=== PATIENT | female | born 1985 | race Two or more races ===

== ENCOUNTER 2018-12-30 09:08 | Inpatient (IN) | payer MEDICARE, MEDICAID ==
[2018-12-30] VITALS (20 sets, daily range): BP systolic 101–133; BP diastolic 50–89
[~2018-12-30] VITALS: Ht 170.2 cm; Wt 101.2 kg
[2018-12-30] MEDS ORDERED: PROPOFOL 100 ML ONE ×2 (09:19→12:40)
[2018-12-30] MEDS: PROPOFOL 100 ML IV PRN ×6 (09:22→22:14)
[2018-12-30 09:23] LABS: BASOPHILS # (AUTO) 0.1 /CMM (0.0-0.2); HEMOGLOBIN 11.4 g/dL (11.5-14.8)
[2018-12-30 09:27] LABS: BASOPHILS % (AUTO) 0.7 % (0.0-2.0); EOSINOPHILS % (AUTO) 6.4 % (0.0-6.0); HEMATOCRIT 35 % (33-45); LYMPHOCYTES # (AUTO) 3.8 /CMM (0.8-4.8); LYMPHOCYTES % (AUTO) 38.3 % (20.0-44.0); MEAN CORPUSCULAR HGB CONC 33 g/dl (31.0-36.0); MEAN CORPUSCULAR VOLUME 86 fL (82-100); MONOCYTES # (AUTO) 0.9 /CMM (0.1-1.30); MONOCYTES % (AUTO) 8.7 % (2.0-12.0); NEUTROPHILS # (AUTO) 4.5 /CMM (1.8-8.9); NEUTROPHILS % (AUTO) 45.9 % (43.0-81.0); PLATELET COUNT (AUTO) 486 /CMM (150-450); RED BLOOD CELL COUNT(AUTO) 4.08 MIL/uL (4.0-5.2); WHITE BLOOD COUNT (AUTO) 9.8 K/uL (4.3-11.0)
[2018-12-30] MEDS ORDERED: ONDANSETRON HCL/PF 4 MG/2 ML VIAL ONE (09:28)
--- NOTE | 2018-12-30 09:29 | NUR ---
RT NOTE RECEIVED PT INTUBATED BY PARAMEDICS. PT HAS 6.0 ETT @ 24CM AT LIP. ETT SECURE PROPERLY. CUFF INFLATED. VENTILATOR SETTINGS FOLLOW AC 12 500 50% +5. ALARMS SET PER PROTOCOL AND AUDIBLE. VENT PLUGGED IN TO RED OUTLET. AMBU BAG AT BED SIDE. Addendum: 12/30/18 at 0931 by BERNICE BROWN RT Amended: Links added.
[2018-12-30] MEDS ORDERED: CLINDAMYCIN 900 MG in IV D5W 100 ML IV ONE (09:30)
[2018-12-30] MEDS ORDERED: CLINDAMYCIN 900 MG/6 ML VIAL ONE (09:30)
[2018-12-30] MEDS ORDERED: IV NS 0.9% 1,000 ML BAG IV ONE (09:30)
[2018-12-30] MEDS ORDERED: ONDANSETRON HCL/PF 4 MG/2 ML VIAL IVP ONE (09:30)
[2018-12-30 09:39] LABS: ALANINE AMINOTRANSFERASE 17 U/L (12-78); ALBUMIN 3.7 g/dL (3.4-5.0); ALKALINE PHOSPHATASE 74 U/L (46-116); ASPARTATE AMINOTRANSFERASE 15 U/L (15-37); BILIRUBIN,TOTAL 0.1 mg/dL (0.2-1.0); CALCIUM, SERUM 8.2 mg/dL (8.5-10.1); CARBON DIOXIDE 26 mmol/L (21-32); CHLORIDE 106 mmol/L (98-107); CREATININE 0.6 mg/dL (0.6-1.3); GLUCOSE 115 mg/dL (74-106); POTASSIUM 3.7 mmol/L (3.5-5.1); SODIUM SERUM 139 mmol/L (136-145); TOTAL PROTEIN, SERUM 7.1 g/dL (6.4-8.2); UREA NITROGEN, BLOOD 11 mg/dL (7-18)
[2018-12-30] MEDS ORDERED: CLON0.5T PO (09:42)
[2018-12-30] MEDS ORDERED: DIGO250T PO (09:42)
[2018-12-30] MEDS ORDERED: CYCL10TA9 PO (09:42)
[2018-12-30] MEDS ORDERED: OXYC-133 PO (09:42)
[2018-12-30] MEDS ORDERED: ONDA4TAB11 PO (09:42)
[2018-12-30] MEDS ORDERED: ARIP10TA9 PO (09:42)
[2018-12-30] MEDS ORDERED: SEVELLA PO (09:42)
[2018-12-30] MEDS ORDERED: METO-357 PO (09:42)
[2018-12-30] MEDS ORDERED: OMEP20TA20 PO (09:42)
[2018-12-30] MEDS ORDERED: FLUV50TA10 PO (09:42)
[2018-12-30] MEDS ORDERED: LAMO200T2 PO (09:42)
[2018-12-30] MEDS ORDERED: MIDAZOLAM 50 MG/10 ML VIAL ONE (10:01)
[2018-12-30] MEDS ORDERED: KEY,NONCONTROL,TO KEEP IN PYXI 1 EA MC ONE (10:10)
--- NOTE | 2018-12-30 10:27 | NUR ---
Patient BIB EMS intubated from surgery secondary to aspiration from vomiting. patient placed in room no. 8. RT present at bedside along with Dr. Crabtree, RN's. Patient placed on monitor, and connected to vent. NGt in place. noted with restrict content. Patient noted agitation continue on propofol per MD order. Chau cath 18FR in placed, Observed sterile technique. Urine sample obtain and sent to the lab. Witnessed by student nurse. ABG's done and stable. no family present at the moment. will continue to monitor the patient.
[2018-12-30 10:28] LABS: ABG BASE EXCESS -2.8 mmol/L; ABG OXYGEN SATURATION 97.3 % (92.0-98.5); ABG PCO2 42.1 mmHg (35.0-45.0); ABG PO2 115.3 mmHg (75.0-100.0); AaDO2 193.8 mmHg; COHb 0.6 % (0.5-1.5); MetHb 0.6 % (0.0-1.5); O2Hb 96.1 % (94.0-97.0); PEEP,BG 5 cm H2O; SITE, ABG Left Radial; VENT MODE, BG AC 12 500 50% +5; VT, ABG 500 mL
[2018-12-30] MEDS ORDERED: MIDAZOLAM HCL 5 MG/5ML VIAL IV ONE (10:30)
[2018-12-30 10:39] LABS: APPEARANCE,URINE Clear (CLEAR); BILIRUBIN,URINE Negative (NEGATIVE); BLOOD, URINE Small Ery/uL (NEGATIVE); COLOR,URINE Yellow (YELLOW); KETONES,URINE Negative (NEGATIVE); LEUKOCYTE ESTERASE ,URINE Negative (NEGATIVE); NITRITE, URINE Negative (NEGATIVE); PH,URINE 5.5 (5.0-8.0); PROTEIN,URINE Negative (NEGATIVE); UGLUCOSE Negative (NEGATIVE); UROBILINOGEN,URINE 0.2 EU/dL (0.2)
[2018-12-30 10:40] LABS: BACTERIA,URINE Few /HPF (None Seen); SQUAMOUS EPITHELIAL CELL,UR Few /HPF (None Seen); WBC,URINE 0-2 /HPF (0-3)
[2018-12-30] MEDS: FENTANYL CITRATE IV 1,250 MCG in IV NS 0.9% 225 ML IV PRN ×3 (10:57→12:34)
--- NOTE | 2018-12-30 10:58 | NUR ---
Patient started on Fentanyl drip on Left hand connected to sapphire pump per protocol. vitals taken and recorded. Remain stable at the moment. will continue to monitor the patient.
--- NOTE | 2018-12-30 10:58 | NUR ---
patient intubated, response to touch stumili. Bilateral pupils 4mm, slow. MD aware.
[2018-12-30] MEDS ORDERED: ONDANSETRON HCL/PF 4 MG/2 ML VIAL IVP PRN (11:30)
[2018-12-30] MEDS ORDERED: VANCOMYCIN 1 GM in IV NS 0.9% 250 ML IV SCH (11:30)
[2018-12-30] MEDS ORDERED: PIPERACILLIN /TAZOBACTAM 4.5 G in IV D5W 50 ML IV SCH (12:00)
--- NOTE | 2018-12-30 12:36 | NUR ---
Patient eyes close arousable noted movevent to bilateral uppeer and lower extremities increase fentanyl 5 mcg /hr witness by Mikie CN
[2018-12-30] MEDS ORDERED: FEE PK DOSING 1 MIN EA MC ONE (12:45)
--- NOTE | 2018-12-30 13:10 | NUR ---
PAGED DR NEENA COSTELLO
--- NOTE | 2018-12-30 13:20 | NUR ---
Noted no further vomiting
--- NOTE | 2018-12-30 13:22 | NUR ---
Called report to Vasquez Andino to ICU room 252
--- NOTE | 2018-12-30 13:24 | NUR ---
Fentanyl 5mcg IVP drip continue infusing well to RAC
--- NOTE | 2018-12-30 13:26 | NUR ---
Patient on diprivan drip 10 mcg to RT hand infusing well .
--- NOTE | 2018-12-30 13:30 | NUR ---
received pt from ER, calmly sedated on Diprivan at fentanyl, ST, on the vent, intubated s/p aspiration in OR, lungs clear, no edema, NG to suction, f/c good output, v/s stable, no pain, seen by Dr. Cunha.
--- NOTE | 2018-12-30 13:47 | NUR ---
Tranfer care to Vasquez LAUREANO at ICU made aware. On fentanyl drip 5mcg. Propofol drip 10mcg. Infusing well. Made aware to f/u to hospitalist. Both IV site no edema no swelling no pain.
[2018-12-30] MEDS: VANCOMYCIN 1.25 GM in IV D5W 250 ML IV SCH ×2 (14:35→20:40)
[2018-12-30] MEDS: ENOXAPARIN SODIUM 40 MG/0.4 ML DISP.SYRIN SQ SCH (14:35)
--- NOTE | 2018-12-30 16:15 | NUR ---
pt is resting in the bed, calmly sedated on Diprivan at 50mcg, ST, NG to suction, f/c good urine output, v/s stable, no pain, pt cleaned, changed and repositioned/
[2018-12-30] MEDS: CYCLOBENZAPRINE 10 MG TABLET PO SCH (17:00)
[2018-12-30] MEDS: LamoTRIgine 100 MG TABLET PO SCH (17:31)
[2018-12-30] MEDS ORDERED: ARIPIPRAZOLE 5 MG TABLET PO ONE (18:00)
--- NOTE | 2018-12-30 19:40 | NUR ---
RN NOTES RECEIVED PATIENT SEDATED WTIH DIPRIVAN ORALLY INTUBATED WTIH ETT 6/ 24 CM AT LIP CONNECTED TO VENT SETTING AC 12 TV 500 FIO2 50% PEEP 5 PATIENT IS AOX 4 WOKE UP BUT CALM AND COOPERATIVE. NO ACUTE RESPIRATORY DISTRESS. SATURATION 98%. ST HR 115 ON TELE MONITOR. NOTED PATIENT HAD TEMPERATURE 100.2 DEGREE FHARENHEIGHT. COOLING MEASURES PROVIDED. WITH NGT ON LIS . IV SITE ON RAC WITH DIPRIVAN @ 60 MCG/KG/MIN AND RH G 22 INTACT AND PATENT. PATIENT HAD BAILEY CATH DRAINED VIA GRAVITY OFF FROM THE FLOOR . KEPT PT COMFORTABLE ON BED AND REPOSITION. CALL LIGHT KEPT WITHN EASY REACH. WILL CONTINUE TO MONITOR.
[2018-12-30] MEDS: CLINDAMYCIN 900 MG in IV D5W 50 ML IV SCH (20:40)
[2018-12-30] MEDS: ACETAMINOPHEN 325 MG TABLET PO PRN (20:50)
[2018-12-31] VITALS (45 sets, daily range): BP systolic 91–130; BP diastolic 48–88
[2018-12-31] MEDS: PROPOFOL 100 ML IV PRN ×3 (01:34→07:25)
[2018-12-31 04:42] LABS: BASOPHILS # (AUTO) 0.1 /CMM (0.0-0.2); BASOPHILS % (AUTO) 0.2 % (0.0-2.0); EOSINOPHILS % (AUTO) 0.5 % (0.0-6.0); HEMATOCRIT 31 % (33-45); HEMOGLOBIN 10.3 g/dL (11.5-14.8); LYMPHOCYTES # (AUTO) 1.4 /CMM (0.8-4.8); MEAN CORPUSCULAR HGB CONC 33 g/dl (31.0-36.0); MEAN CORPUSCULAR VOLUME 87 fL (82-100); MONOCYTES # (AUTO) 0.8 /CMM (0.1-1.30); MONOCYTES % (AUTO) 2.9 % (2.0-12.0); NEUTROPHILS # (AUTO) 24.9 /CMM (1.8-8.9); NEUTROPHILS % (AUTO) 91.4 % (43.0-81.0); PLATELET COUNT (AUTO) 398 /CMM (150-450); RED BLOOD CELL COUNT(AUTO) 3.59 MIL/uL (4.0-5.2); WHITE BLOOD COUNT (AUTO) 27.3 K/uL (4.3-11.0)
[2018-12-31] MEDS: CLINDAMYCIN 900 MG in IV D5W 50 ML IV SCH ×3 (04:56→20:48)
[2018-12-31] MEDS: VANCOMYCIN 1.25 GM in IV D5W 250 ML IV SCH ×3 (04:57→21:37)
[2018-12-31 05:09] LABS: CALCIUM, SERUM 8.1 mg/dL (8.5-10.1); CREATININE 0.5 mg/dL (0.6-1.3); MAGNESIUM 1.5 mg/dL (1.8-2.4); POTASSIUM 3.1 mmol/L (3.5-5.1)
[2018-12-31 05:24] LABS: THYROID STIMULATING HORMONE 0.474 uIU/mL (0.358-3.74)
--- NOTE | 2018-12-31 07:00 | NUR ---
RN NOTES PATIENT REMAINED INTUBATED TOLERATED WELL. AOX4 WITH SEDATION DIPRIVAN FOR COMFORT. PATIENT REMAINED CALM AND COOPERATIVE. DENIES PAIN. CONTINUE TO SUCTION NGT TO LIS WITH FOOD CONTENT FROM NGT AND FROM ETT SUCTION. ON DIPRIVAN TITRATED PROTOCOL. TMAX 100.2 COOLING MEASURES, TYLENOL PRN GIVEN ORDERED AND TOLERATED WELL. AFEBRILE AT THIS TIME. ST ON TELE MONITOR HR WENT UP TO 117 WHEN SPIKING FEVER. KEPT PT CLENA AND DRY.W ILL CONTINUE TO MONITOR.
--- NOTE | 2018-12-31 07:30 | NUR ---
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
[2018-12-31] MEDS ORDERED: DC PROPOFOL WHEN EXTUBATED XX PRN (08:00)
[2018-12-31] MEDS: PANTOPRAZOLE 40 MG VIAL IV SCH (08:11)
[2018-12-31] MEDS: CYCLOBENZAPRINE 10 MG TABLET PO SCH ×2 (08:11→17:00)
[2018-12-31] MEDS: METOPROLOL SUCCINATE 50 MG TAB.SR.24H PO SCH (08:11)
[2018-12-31] MEDS: FLUVOXAMINE MALEATE 50 MG TABLET PO SCH (08:11)
[2018-12-31] MEDS: ENOXAPARIN SODIUM 40 MG/0.4 ML DISP.SYRIN SQ SCH (08:13)
--- NOTE | 2018-12-31 08:15 | NUR ---
pt is off of sedation, on SIMV mode, tolerating well.
[2018-12-31 08:56] LABS: ABG BASE EXCESS 1.7 mmol/L; ABG OXYGEN SATURATION 98.2 % (92.0-98.5); ABG PCO2 37.4 mmHg (35.0-45.0); ABG PH 7.453 (7.350-7.450); ABG PO2 128.4 mmHg (75.0-100.0); AaDO2 113.8 mmHg; COHb 0.2 % (0.5-1.5); MetHb 0.5 % (0.0-1.5); O2Hb 97.5 % (94.0-97.0); SITE, ABG Right Radial
--- NOTE | 2018-12-31 09:15 | NUR ---
patient is successfully extubated, v/s stable, no pain.
[2018-12-31] MEDS: POTASSIUM CL. PREMIX PERIPHER. 50 ML IV SCH ×3 (09:21→11:08)
[2018-12-31] MEDS: Magnesium 1GM/D5W 100ML PREMIX 100 ML IV SCH ×2 (12:08→13:34)
[2018-12-31] MEDS ORDERED: DIGOXIN 0.25 MG TABLET PO SCH (13:00)
--- NOTE | 2018-12-31 16:20 | NUR ---
pt is resting in the bed, a/o x4, ST, tolerates diet, f/c good output, v/s stable, no pain, pt cleaned and changed.
[2018-12-31] MEDS: LamoTRIgine 100 MG TABLET PO SCH (17:00)
--- NOTE | 2018-12-31 19:30 | NUR ---
ICU NOTES RECEIVED PT AWAKE ALERT OX3.MONITOR SHOWS SINUS TACH W/OUT ECTOPICS.TEMP 101.2 WILL GIVE TYLENOL 650MG PO FOR ABOVE AND WILL RECHECK TEMP W/IN 45 MIN.SEE EMAR
[2018-12-31] MEDS: ACETAMINOPHEN 325 MG TABLET PO PRN (19:42)
--- NOTE | 2018-12-31 20:45 | NUR ---
ICU NOTES FRIEND AT BEDSIDE VISITING.TEMP -100 DEGREES FAHRENHEIT.OFFERS NO COMPLAINTS
--- NOTE | 2018-12-31 22:05 | NUR ---
Met with patient, s/p extubation, alert and pleasant. States she lives locally with her mother in an apartment. She is ambulatory and independent with adl's. Has good family and friends support. Her pcp is Dr. Leo [phone]. Her family can provide ride when discharge. Addendum: 12/31/18 at 2205 by ABDIEL BANEGAS RN Amended: Links added.
--- NOTE | 2018-12-31 22:30 | NUR ---
ICU NOTES FRIEND STILL AT BEDSIDE PT TALKING TO FRIEND ABOUT EVENT THAT TRANSPIRED AFTER SURGERY.PT TOLD FRIEND THAT SHE ATE A SLICE OF PIZZA AND A GLASS OF WATER SHE WAS TOLD BY SURGERY CENTER' NOT TO EAT OR DRINK 8HRS PRIOR TO SURGERY.'
[2019-01-01] VITALS (36 sets, daily range): BP systolic 76–144; BP diastolic 34–89
--- NOTE | 2019-01-01 00:20 | NUR ---
JESÚS NOTES DR. GUDINO CALLED TO INQUIRE ABOUT PT,DETAILED REPORT GIVEN.PT TOLERATING N/C AT 2LPM W/ 98-100% SATURATION.OFFERED PT A BATH BUT REFUSED EVEN W/ MUCH ENCOURAGEMENT.
--- NOTE | 2019-01-01 02:00 | NUR ---
ICU NOTES VS STABLE AFEBRILE,SLEEPING WELL,RESPIRATIONS REGULAR AND EVEN.
[2019-01-01] MEDS: CLINDAMYCIN 900 MG in IV D5W 50 ML IV SCH ×3 (04:48→21:25)
[2019-01-01 04:53] LABS: BASOPHILS % (AUTO) 0.1 % (0.0-2.0); EOSINOPHILS % (AUTO) 4.8 % (0.0-6.0); HEMATOCRIT 30 % (33-45); LYMPHOCYTES # (AUTO) 1.6 /CMM (0.8-4.8); LYMPHOCYTES % (AUTO) 6.5 % (20.0-44.0); MEAN CORPUSCULAR HGB CONC 33 g/dl (31.0-36.0); MEAN CORPUSCULAR VOLUME 84 fL (82-100); NEUTROPHILS # (AUTO) 20.4 /CMM (1.8-8.9); NEUTROPHILS % (AUTO) 84.6 % (43.0-81.0); PLATELET COUNT (AUTO) 390 /CMM (150-450); RED BLOOD CELL COUNT(AUTO) 3.54 MIL/uL (4.0-5.2); WHITE BLOOD COUNT (AUTO) 24.1 K/uL (4.3-11.0)
[2019-01-01 04:55] LABS: CALCIUM, SERUM 8.2 mg/dL (8.5-10.1); CREATININE 0.6 mg/dL (0.6-1.3); MAGNESIUM 2.2 mg/dL (1.8-2.4); POTASSIUM 3.4 mmol/L (3.5-5.1)
[2019-01-01] MEDS: VANCOMYCIN 1.25 GM in IV D5W 250 ML IV SCH ×3 (05:30→22:30)
--- NOTE | 2019-01-01 06:40 | NUR ---
ICU NOTES WITH NON-PRODUCTIVE COUGH.AFEBRILE.MONITOR SHOW SINUS TACH W/OUT ECTOPICS.
[2019-01-01] MEDS: PANTOPRAZOLE 40 MG VIAL IV SCH (08:05)
[2019-01-01] MEDS: CYCLOBENZAPRINE 10 MG TABLET PO SCH ×2 (08:05→16:28)
[2019-01-01] MEDS: FLUVOXAMINE MALEATE 50 MG TABLET PO SCH (08:05)
[2019-01-01] MEDS: METOPROLOL SUCCINATE 50 MG TAB.SR.24H PO SCH (08:06)
[2019-01-01] MEDS: ENOXAPARIN SODIUM 40 MG/0.4 ML DISP.SYRIN SQ SCH (08:07)
--- NOTE | 2019-01-01 08:33 | NUR ---
received pt from inspector [employer], a/o x4, ST, on 2L 02 sat well, v/s stable, no pain, tolerates diet, good urine output.
[2019-01-01] MEDS ORDERED: POTASSIUM CHLORIDE 20 MEQ TAB.PRT.SR PO SCH (10:00)
--- NOTE | 2019-01-01 16:10 | NUR ---
patient in resting in the bed, a/o x, ST, on 2L 02 sat well, BRP, v/s stable, no pain, family at the bedside.
[2019-01-01] MEDS: LamoTRIgine 100 MG TABLET PO SCH (17:04)
--- NOTE | 2019-01-01 18:23 | NUR ---
pt. arrived here in rm [id number].made comfortable and oriented to rm.call rahman within reach.pt. alert and oriented x4. no need for 02 at this time.instructed to call for help before getting oob,pt. agreed.
--- NOTE | 2019-01-01 18:23 | NUR ---
pt transferred to med surg, a/o x4, v/s stable, no pain.
--- NOTE | 2019-01-01 19:42 | NUR ---
MS RN RECEIVE PT IN BED A/O X3, STABLE AND NOT IN DISTRESS, RESPIRATIONS EVEN AND UNLABORED. WILL CONT TO MTR
--- NOTE | 2019-01-01 20:00 | NUR ---
Pt asking if she could have her Percocet per pt she is taking percocet 10/325 mg po q6hr for her generalized pain. relayed to oxana orozco hospitalist he will put the orders.
[2019-01-01] MEDS: oxyCODONE/APAP (5/325 MG) 1 UDTAB TABLET PO PRN (21:16)
--- NOTE | 2019-01-01 22:23 | NUR ---
Sena and spoke to Tim Luis hospitalist relayed pt c/o indigestion asking for maalox obtained new orders of maalox susp udc 30 ml q6hr prn po read back and verified orders noted and carried out
[2019-01-01] MEDS ORDERED: MAG HYDROX/AL HYDROX/SIMETH 30 ML UDC PO PRN (22:30)
[2019-01-02] MEDS: CLINDAMYCIN 900 MG in IV D5W 50 ML IV SCH ×2 (04:16→12:32)
[2019-01-02] MEDS: VANCOMYCIN 1.25 GM in IV D5W 250 ML IV SCH ×2 (05:05→13:00)
--- NOTE | 2019-01-02 06:12 | NUR ---
PT ASLEEP AND EASILY AWAKEN, NO C/O OF PAIN AT THIS TIME, RESPIRATIONS EVEN AND UNLABORED. NO S/S OF DISTRESS, NURSING CARE RENDERED, KEPT CLEAN AND DRY AND COMFORTABLE. NEEDS ATTENDED AND ANTICIPATED. SAFETY MEASURES AT ALL TIMES. ENDORSE TO THE NEXT SHIFT.
[2019-01-02 06:55] LABS: BASOPHILS # (AUTO) 0.1 /CMM (0.0-0.2); BASOPHILS % (AUTO) 0.7 % (0.0-2.0); EOSINOPHILS % (AUTO) 14.8 % (0.0-6.0); HEMATOCRIT 31 % (33-45); HEMOGLOBIN 10.5 g/dL (11.5-14.8); LYMPHOCYTES # (AUTO) 2.2 /CMM (0.8-4.8); LYMPHOCYTES % (AUTO) 21.2 % (20.0-44.0); MEAN CORPUSCULAR HGB CONC 34 g/dl (31.0-36.0); MEAN CORPUSCULAR VOLUME 86 fL (82-100); MONOCYTES # (AUTO) 0.7 /CMM (0.1-1.30); MONOCYTES % (AUTO) 6.6 % (2.0-12.0); NEUTROPHILS % (AUTO) 56.7 % (43.0-81.0); PLATELET COUNT (AUTO) 419 /CMM (150-450); RED BLOOD CELL COUNT(AUTO) 3.61 MIL/uL (4.0-5.2); WHITE BLOOD COUNT (AUTO) 10.6 K/uL (4.3-11.0)
[2019-01-02 07:37] LABS: CALCIUM, SERUM 8.1 mg/dL (8.5-10.1); CREATININE 0.8 mg/dL (0.6-1.3); PHOSPHORUS 4.4 mg/dL (2.5-4.9); POTASSIUM 3.4 mmol/L (3.5-5.1)
--- NOTE | 2019-01-02 08:00 | NUR ---
RN NOTES RECEIVED PATIENT IN THE BED A/O X3/4, PATIENT HAS NO ACUTE RESPIRATORY DISTRESS, UNLABORED.V/S STABLE, AMBULATORY SELF CARE. V/S STABLE, ADMINISTERED SCHEDULED MEDICATION. IV ACCESS ON RIGHT FA INTACT. PATENT TOLERATED BREAKFAST WELL, WAS COMPLAINING OF GENERALIZED PAIN 09/08. NEEDS ATTENDED AND ANTICIPATED. COLLECTED UA. CALL LIGHT WITHIN TO REACH. CONTINUED MONITORING.
[2019-01-02] MEDS: PANTOPRAZOLE 40 MG VIAL IV SCH (08:48)
[2019-01-02 08:49] VITALS: BP 131/78
[2019-01-02] MEDS: oxyCODONE/APAP (5/325 MG) 1 UDTAB TABLET PO PRN (08:49)
[2019-01-02] MEDS: METOPROLOL SUCCINATE 50 MG TAB.SR.24H PO SCH (08:49)
--- NOTE | 2019-01-02 08:49 | NUR ---
RN NOTES ADMINISTERED PERCOCET 5/325 MG PO PRN TWO TABS PER PATIENT REQUEST FOR GENERALIZED PAIN 10/09 , V/S TAKEN BP 131/78, P-88, R-19. CONTINUED MONITORING.
[2019-01-02] MEDS: FLUVOXAMINE MALEATE 50 MG TABLET PO SCH (08:50)
[2019-01-02] MEDS: CYCLOBENZAPRINE 10 MG TABLET PO SCH (08:50)
[2019-01-02] MEDS: ENOXAPARIN SODIUM 40 MG/0.4 ML DISP.SYRIN SQ SCH (08:55)
[2019-01-02] MEDS ORDERED: POTASSIUM CHLORIDE 20 MEQ TAB.PRT.SR PO SCH (10:00)
[2019-01-02] MEDS: ACETAMINOPHEN 325 MG TABLET PO PRN (13:33)
--- NOTE | 2019-01-02 13:33 | NUR ---
rn notes administered tylenol 650 mg po prn for generalized pain 10 per patient request. patient going to be discharge home, mom aware of to tack picker. continued monitoring.
--- NOTE | 2019-01-02 15:19 | NUR ---
SHEET LAYER NOTES PATIENT DISCHARGE AT THIS TIME GOING HOME. PATIENT A/O X3, STABLE, REFUSED PAIN, V/S WNL., NO RESPIRATORY DISTRESS. MED RECONCILIATION AND DISCHARGE ORDER REVIEWED AND EXPLAINED TO PATIENT . PATIENT VERBALIZED UNDERSTANDING. BELONGING WITH THE PATIENT, PRESCRIPTION HANDED TO THE PATIENT. PATIENT SIGN PAPERWORK. PATIENT WILL FOLLOW PRIMARY MD, AND ALSO HAS APPOINTMENT 01/06/[address] [facility] OUTPATIENT AFTER DISCHARGE. ESCORTED PATIENT TO THE LOBBY FOR SAFETY . PATIENT FILTER WASHER BY THE MOTHER PHONE # [phone].
== END 2019-01-02 15:15 | disposition home or self-care (01) | DRG 208 ==
LOC: ER 09:10 → ICU 12:15 → MED 01-01 18:11
PROC: 5A1935Z Respiratory Ventilation, Less than 24 Consecutive Hours (ICD-10-PCS; principal; 2018-12-30)
DX: J96.01 Acute respiratory failure with hypoxia (principal); J69.0 Pneumonitis due to inhalation of food and vomit; M21.612 Bunion of left foot; D64.9 Anemia, unspecified; M79.7 Fibromyalgia; I10 Essential (primary) hypertension; F31.9 Bipolar disorder, unspecified; Z88.0 Allergy status to penicillin; D47.3 Essential (hemorrhagic) thrombocythemia; X58.XXXA Exposure to other specified factors, initial encounter; Y92.530 Ambulatory surgery center as the place of occurrence of the external cause; T17.918A Gastric contents in respiratory tract, part unspecified causing other injury, initial encounter; K21.9 Gastro-esophageal reflux disease without esophagitis
CPT/HCPCS: 31720; 36415; 36600; 71045-TC; 80048-TC; 80076-TC; 80162-TC; 80202-TC; 81000-TC; 82803-TC; 83605-TC; 83735-TC; 83880; 84100-TC; 84443-TC; 84484-TC; 84703-TC; 85025-TC; 85730-TC; 87040-TC; 87081-TC; 93307-TC; 94002-TC; 94003-TC; 94760-TC; 94799-TC; 99082-TC; C9113; G0378; J1650; J2250; J2405; J2543; J3010; J3370; J3475; J3480; J3490; J7030; J7050; J7060

== ENCOUNTER 2019-01-10 14:34 | Outpatient (CLI) | payer MEDICARE, MEDICAID ==
[~2019-01-10 14:34] MED LIST: ARIP10TA9 PO; CLON0.5T PO; CYCL10TA9 PO; DIGO250T PO; FLUV50TA10 PO; LAMO200T2 PO; METO-357 PO; OMEP20TA20 PO; ONDA4TAB11 PO; OXYC-133 PO; SEVELLA PO
[2019-01-10 15:26] VITALS: BP 126/80
== END 2019-01-10 23:59 | disposition home or self-care (01) ==
LOC: MSC 14:34
PROVIDERS: ATTEND Internal Medicine
DX: J69.0 Pneumonitis due to inhalation of food and vomit (principal); Z98.890 Other specified postprocedural states; I10 Essential (primary) hypertension; D64.89 Other specified anemias; M79.7 Fibromyalgia; F31.9 Bipolar disorder, unspecified